=== PATIENT | female | born 1990 | race American Indian/Alaskan Native ===

== ENCOUNTER 2020-04-21 13:14 | Emergency (ER) | payer SELFPAY ==
[2020-04-21 13:19] VITALS: BP 158/90
--- NOTE | 2020-04-21 14:04 | Emergency Department Report ---
Chief Complaint: Urogenital-Female Stated Complaint: VAGINAL DISCHARGE AND ODOR Time Seen by Provider: 04/21/20 13:41 - HPI History of Present Illness: 30-year-old obese -[place] female presents to the emergency room for vaginal discharge for a week and a half. Patient states that she thought she had a yeast infection and then she started to have an odor with her vaginal discharge. Patient denies any pelvic pain, abdominal pain, nausea vomiting, fever chills, hematuria. Has had unprotected intercourse. - Exam Vital Signs: Vital Signs 04/21/20 13:19 Temperature 98.2 F Pulse Rate 106 H Respiratory 18 Rate Blood Pressure 158/90 O2 Sat by Pulse 98 Oximetry Physical Exam: Gen: alert oriented NAD Cardic: regular rate and rhythm no murmurs appreciated Resp: Clear to auscultation bilateral no wheezing no rales or rhonchi. Abdomen: Soft nontender nondistended normal bowel sounds. Ambulatory without difficulties. MSE screening note: Focused history and physical exam performed. Due to findings the following was ordered: 30-year-old obese -[place] female presents to the emergency room for vaginal discharge for a week and a half. Patient states that she thought she had a yeast infection and then she started to have an odor with her vaginal discharge. Patient denies any pelvic pain, abdominal pain, nausea vomiting, fev er chills, hematuria. Has had unprotected intercourse. Recommend patient to follow-up at the [facility] urgent care or primary care or [facility] clinic. ED Disposition for MSE Disposition: Z- MED SCREENING EXAM-LEFT Is pt being admited?: No Does the pt Need Aspirin: No Condition: Stable Additional Instructions: Recommend to follow-up at the [facility] urgent care clinic or [facility]. Referrals: PRIMARY CARE [Primary Care Provider] - 3-5 Days [facility] [Outside] - 3-5 Days [facility] [Outside] - 3-5 Days [facility] [Provider Group] - 3-5 Days
== END 2020-04-21 14:30 | disposition left against medical advice (07) ==
LOC: ED 13:14
DX: N89.8 Other specified noninflammatory disorders of vagina (principal); Z53.21 Procedure and treatment not carried out due to patient leaving prior to being seen by health care provider